=== PATIENT | male | born 1970 ===

== ENCOUNTER 2023-11-19 10:56 | Outpatient (CLI) | payer OTHER ==
[~2023-11-19 10:56] MED LIST: ALBUTEROL SULF8.5 GM IH; CONEX TABLET1 EACH PO; TUSICOF LIQUID120 ML PO
== END 2023-11-19 11:06 | disposition home or self-care (01) ==
LOC: SONOGRAMA 10:56
PROVIDERS: ATTEND Pathology Anatomic Pathology & Clinical Pathology
DX: E04.1 Nontoxic single thyroid nodule (principal)

== ENCOUNTER 2024-11-08 08:20 | Inpatient (IN) | payer OTHER ==
[~2024-11-08] VITALS: Ht 177.8 cm; Wt 90.3 kg
[2024-11-08 08:06] VITALS: BP 146/84
[~2024-11-08 08:20] MED LIST changes: +SYNTHROID88 MCG PO
[2024-11-08 08:25] LABS: BASO % 1.8 % (0.1-1.2); EOS # 0.16 (0.04-0.54); EOS % 2.9 % (0.7-7.0); HEMATOCRIT 38.3 % (40.1-51.0); HEMOGLOBIN 13.6 g/dL (13.7-17.5); LYMPH # 2.46 (1.18-3.74); LYMPH % 44.6 % (19.3-53.1); MEAN CORPUSCULAR HEMOGLOBIN 34.7 pg (25.6-32.2); MONO # 0.65 (0.24-0.82); MONO % 11.8 % (4.7-12.5); NEUT # 2.12 (1.56-6.13); NEUT % 38.5 % (34.0-71.1); RED BLOOD COUNT 3.92 M/uL (4.63-6.08); RED CELL DISTRIBUTION WIDTH 13.6 % (11.6-14.4)
[2024-11-08 08:26] LABS: PLATELET COUNT 128 K/uL (163-369); URINE APPEARANCE Clear; URINE BILIRRUBIN Negative (NEGATIVE); URINE BLOOD Negative; URINE COLOR Yellow; URINE GLUCOSE Negative (NEGATIVE); URINE KETONE Negative (NEGATIVE); URINE LEUKOCYTE Negative; URINE NITRATE Negative; URINE PROTEIN Negative (NEGATIVE); URINE UROBILINOGEN 0.2 E.U./dl
[2024-11-08 08:30] LABS: URINE BACTERIA 4.8 uL (0.0-1933); URINE EPITHELIAL CELLS 2.3 uL (0.0-38.8)
[2024-11-08 08:40] LABS: URINE CAST 1.03 uL (0.0-1.40); URINE RBC 0.4 uL (0.0-20.8); URINE WBC 1.7 uL (0.0-23.2)
[2024-11-08 08:52] LABS: COVID-19 AG NEGATIVE (NEGATIVE)
[2024-11-08 09:00] LABS: INR 1.13; PARTIAL THROMBOPLASTIN TIME 24.5 SECONDS (22.0-34.0); PROTHROMBIN TIME 12.2 SECONDS (9.0-11.5)
[2024-11-08 09:15] LABS: CREATININE SERUM 0.43 mg/dL (0.70-1.30); GFR 205.45; POTASSIUM 4.02 mEq/L (3.5-5.1)
[2024-11-08 09:22] LABS: RH POSITIVE
[2024-11-09] MEDS ORDERED: CEFAZOLIN SODIUM 1,000 MG VIAL ONE ×2 (10:41→20:50)
[2024-11-09] MEDS ORDERED: ENOXAPARIN SODIUM 40 MG/0.4 ML SYRINGE SUBCUTANEO ONE (10:50)
[2024-11-09] MEDS ORDERED: HEMOSTATIC MATRIX 1 KIT KIT TOP ONE (12:55)
[2024-11-09] MEDS ORDERED: BUPIVACAINE HCL/MPF 0.5% 30ML VIAL ONE (12:55)
[2024-11-09] MEDS ORDERED: SURGIFLO APPLICATOR 1 EACH APPL TOP ONE (12:55)
[2024-11-09] MEDS ORDERED: SUGAMMADEX SODIUM 200 MG/2 ML VIAL IV ONE (13:33)
[2024-11-09] MEDS ORDERED: BUPIVACAINE HCL 30 ML VIAL IJ ONE (14:00)
[2024-11-09] MEDS ORDERED: OxyCODONE HCL 5 MG TABLET (ROXICODONE) PO PRN (18:00)
[2024-11-09] MEDS ORDERED: ONDANSETRON HCL 2 MG/ML VIAL IV PRN (18:00)
[2024-11-09] MEDS ORDERED: RINGERS SOLUTION,LACTATED 1,000 ML IV SCH (18:00)
[2024-11-09] MEDS ORDERED: MORPHINE SULFATE 4 MG/ML CARTRIDGE IV PRN (18:00)
[2024-11-09] MEDS ORDERED: ACETAMINOPHEN 325 MG TABLET PO PRN (18:30)
[2024-11-09] MEDS ORDERED: FAMOTIDINE/PF 20 MG/2 ML VIAL ONE (20:50)
[2024-11-09] MEDS ORDERED: FAMOTIDINE/PF 20 MG/2 ML VIAL IV SCH (21:00)
[2024-11-09] MEDS ORDERED: CEFAZOLIN SODIUM 1,000 MG VIAL IV SCH (21:00)
[2024-11-09 22:10] VITALS: BP 158/76; O2SAT 95
[2024-11-10] MEDS ORDERED: GABAPENTIN 300 MG CAPSULE PO SCH (01:00)
[2024-11-10 01:24] VITALS: BP 142/75; O2SAT 97
[2024-11-10] MEDS ORDERED: LEVOTHYROXINE SODIUM 88 MCG TABLET PO SCH (06:00)
[2024-11-10 06:42] LABS: BASO % 0.9 % (0.1-1.2); HEMATOCRIT 32.6 % (40.1-51.0); HEMOGLOBIN 10.9 g/dL (13.7-17.5); LYMPH % 9.2 % (19.3-53.1); MEAN CORPUSCULAR HEMOGLOBIN 32.6 pg (25.6-32.2); MONO # 1.04 (0.24-0.82); NEUT # 5.81 (1.56-6.13); NEUT % 75.9 % (34.0-71.1); RED BLOOD COUNT 3.34 M/uL (4.63-6.08); RED CELL DISTRIBUTION WIDTH 13.5 % (11.6-14.4)
[2024-11-10 06:56] LABS: MONO % 13.6 % (4.7-12.5); PLATELET COUNT 113 K/uL (163-369)
[2024-11-10 07:02] LABS: ALBUMIN 3.3 gm/dL (3.4-5.0); CALCIUM 8.1 mg/dL (8.5-10.1); CREATININE SERUM 0.52 mg/dL (0.70-1.30); GFR 164.99; PHOSPHOROUS 3.9 mg/dL (2.5-4.9); POTASSIUM 4.69 mEq/L (3.5-5.1)
[2024-11-10 08:00] VITALS: BP 160/86; O2SAT 95
[2024-11-10] MEDS ORDERED: ENOXAPARIN SODIUM 40 MG/0.4 ML SYRINGE SUBCUTANEO SCH (09:00)
[2024-11-10] MEDS ORDERED: SUGAMMADEX SODIUM 200 MG/2 ML VIAL IV ONE (11:45)
[2024-11-10 13:48] LABS: BASO % 0.6 % (0.1-1.2); EOS # 0.03 (0.04-0.54); EOS % 0.4 % (0.7-7.0); HEMATOCRIT 35.3 % (40.1-51.0); HEMOGLOBIN 11.9 g/dL (13.7-17.5); LYMPH # 0.81 (1.18-3.74); LYMPH % 11.9 % (19.3-53.1); MEAN CORPUSCULAR HEMOGLOBIN 32.8 pg (25.6-32.2); MONO # 0.54 (0.24-0.82); MONO % 7.9 % (4.7-12.5); NEUT # 5.37 (1.56-6.13); NEUT % 78.9 % (34.0-71.1); RED BLOOD COUNT 3.63 M/uL (4.63-6.08); RED CELL DISTRIBUTION WIDTH 13.3 % (11.6-14.4)
[2024-11-10 13:53] LABS: PLATELET COUNT 116 K/uL (163-369)
[2024-11-10] MEDS ORDERED: POLYETHYLENE GLYCOL 3350 17 GM BLIST.PACK PO SCH (17:00)
== END 2024-11-10 16:13 | disposition home or self-care (01) | DRG 707 ==
LOC: O/R 11-09 06:09 → SURH 11-09 07:00
PROVIDERS: ADMIT Urology; ATTEND Urology
PROC: 07BC4ZZ Excision of Pelvis Lymphatic, Percutaneous Endoscopic Approach (ICD-10-PCS; 2024-11-09)
PROC: 8E0W4CZ Robotic Assisted Procedure of Trunk Region, Percutaneous Endoscopic Approach (ICD-10-PCS; 2024-11-09)
PROC: 0VT04ZZ Resection of Prostate, Percutaneous Endoscopic Approach (ICD-10-PCS; principal; 2024-11-09 07:00)
DX: C61 Malignant neoplasm of prostate (principal); C77.5 Secondary and unspecified malignant neoplasm of intrapelvic lymph nodes
CPT/HCPCS: 55866; 38571; S2900